=== PATIENT | female | born 1985 | race Two or more races ===

== ENCOUNTER 2025-04-12 19:37 | Emergency (ER) | payer MEDICAID, SELFPAY ==
[2025-04-12 19:39] VITALS: BMI 42.5
[2025-04-12 20:04] VITALS: BP 136/90; PULSE 120; RESP 17; TEMP 37.1; O2SAT 98
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
[2025-04-12] MEDS: AMOXICILLIN/POT CLAV 875 TABLET 1 TAB PO (21:17)
[2025-04-12] MEDS: HYDROcodone/APAP 5/325 TABLET 1 TAB PO (21:17)
[2025-04-12] MEDS: ONDANSETRON ODT 4 MG TABRAP PO (21:18)
[2025-04-12] MEDS: DIPHTH,PERTUSS(ACELL),TET VAC 0.5 ML SYR- ADULT IMi (21:18)
[2025-04-12] MEDS: IBUPROFEN TAB 400 MG TABLET 800 MG PO (21:18)
== END 2025-04-12 21:34 | disposition home or self-care (01) ==
PROVIDERS: Emergency Provider Emergency Medicine; PCP Physician Assistant
DX: S61.254A Open bite of right ring finger without damage to nail, initial encounter (principal); S41.152A Open bite of left upper arm, initial encounter; Y04.1XXA Assault by human bite, initial encounter; Z23 Encounter for immunization
CPT/HCPCS: 73120; 90471; 90715; 99283; Q0162; A9270

== ENCOUNTER 2025-08-15 12:31 | Emergency (ER) | payer MEDICAID, SELFPAY ==
[2025-08-15 12:45] VITALS: BP 128/91; PULSE 98; RESP 18; TEMP 36.9; O2SAT 99; BMI 41.8
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
--- NOTE | 2025-08-15 12:54 | EDNOTE_ITS ---
ED General RME/HPI General Chief complaint: Extremity Injury, Upper Stated complaint: Right shoulder pain Time Seen by Provider: 08/15/25 12:50 Arrival date/time: 08/15/25 12:31 CC: Right shoulder pain HPI ongoing for the past 2 months intermittent in nature. Onset after taking her daughter down as her daughter is developmentally delayed. After which the patient has had intermittent pain patient has not sought help from orthopedics or primary care doctor. No OTC medicines taken in the past 24 hours. Denies numbness in the right arm. Related Data Home Medications ?Medication ?Instructions ?Recorded ?Confirmed diphenhydramine HCl 50 mg/30 mL 25 mg PO HS PRN Sleep 03/22/20 03/22/20 oral liquid (ZzzQuil) Previous Rx's ?Medication ?Instructions ?Recorded hydroxyzine pamoate 50 mg capsule 50 mg PO TID PRN anx iety #30 caps 08/08/21 (Vistaril) cephalexin 500 mg capsule 500 mg PO Q8H #30 caps 01/13 ibuprofen 800 mg tablet 800 mg PO Q6H PRN pain #20 t abs 04/12/25 Allergies Allergy/AdvReac Type Severity Reaction Status Date / Time No Known Allergies Allergy Verified 08/15/25 12:35 Review of Systems Review of Systems Narrative Review of Systems: GEN: No fever, no chills, no weight loss EYES: No discharge, no visual changes, no pain HEENT: No ear pain, no congestion, no sore throat PULM: No shortness of breath, no cough, no congestion CV: No chest pain, no dyspnea on exertion, no palpitations GI: No nausea, no vomiting, no diarrhea, no pain, no constipation : No frequency, no urgency, no dysuria MUSC/SKEL: No joint pain, no back pain SKIN: No rash PSYCH: No hallucinations, no depression HEME/LYMPH: No easy bleeding or bruising tendencies NEURO: No weakness, no headache Past Medical History Past Medical History NEUROLOGIC: Negative Neurological Disorders CARDIAC: Negative Cardiac Disorders or Congestive Heart Failure RESPIRATORY: Negative Chronic Obstructive Pulmonary Disease (COPD) or Asthma GASTROINTESTINAL: Negative Gastrointestinal Disorders GENITOURINARY: Negative Genitourinary Disorders or Renal Disease REPRODUCTIVE: Negative Pelvic Inflammatory Disease MUSCULOSKELETAL: Negative Musculoskeletal Disorders ENDOCRINE: Negative Endocrine Disorders, Diabetes Mellitus Type 1 or Diabetes Mellitus Type 2 HEMATOLOGIC: Negative Anemia or Sickle Cell Disease OTHER HISTORY: Negative Autoimmune Disease, Falls, Blood Transfusions, Anesthesia Reactions, MRSA, VRSA, Vancomycin-Resistant Enterococci, Clostridium Difficile or Cancer Family History FAMILY HISTORY: Negative Family Neurologic Problems or Family Cardiac Disorders Surgical History SURGICAL: Positive Tubal Ligation; Negative Endocrine Surgery, Abdominal Surgery, Joint Replacement or Mastectomy Social History SMOKING STATUS: Never smoker SUBSTANCE USE: does not use ED Exam Narrative Physical exam: [General: Morbidly obese in mild discomfort but not in any acute distress Head normocephalic HEENT: Within acceptable limits Neck is supple nontender Chest equal chest rise nontender to palpation Respiratory: Clear to auscultation no wheezes crackles or rubs CV: Rate rhythm is regular no murmurs rubs or clicks Abdomen is distended secondary to body habitus soft nontender no masses positive bowel sounds all 4 quadrants Back: No CVA tenderness no spinous process tenderness from cervical spine thoracic and lumbar spine Skin: Intact no petechiae rash induration ulceration or crepitus Extremities: Decreased range of motion of the right upper extremity secondary to shoulder pain. Significant pain with adduction and abduction. Pain with supination. No pops or clicks. No pain with palpation to the shoulder base of the neck upper back or upper anterior chest. Cap refill in the digits less than 2 seconds neurosensory intact. Moving all other extremities against resistance cap refill less than 2 seconds neurosensory intact Neuro: Awake alert oriented x3 Glascow coma 15 no focal deficits] Course Course Course Narrative: Patient has had ongoing pain for 2 months. At this time I feel the patient needs to be seen by an orthopod and requires an outpatient MRI. Patient will be placed in a sling and given nonsteroidal anti-inflammatories for intermittent pain. Quality Measures none Orders Category Date Time Status Miscellaneous Nursing Order NOW Care 08/15/25 14:30 Completed XR shoulder RT min 2V Stat Exams 08/15/25 12:53 Completed Ketorolac Inj [Toradol Inj] Med 08/15/25 14:30 Discontinued 30 mg IM X1 ONE Vital Signs Vital signs: Vital Signs Temperature 98.4 F 08/15/25 12:45 Pulse Rate 98 08/15/25 12:45 Respiratory Rate 18 08/15/25 12:45 Blood Pressure 128/91 H 08/15/25 12:45 Pulse Oximetry (%) 99 08/15/25 12:45 Oxygen Delivery Method Room Air 08/15/25 12:45 Discharge Plan Plan Patient Disposition: HOME (Self Care) Patient condition on transfer: Stable Prescriptions/Referrals Prescriptions/Med Rec: No Action ZzzQuil 50 mg/30 mL Liquid 25 mg PO HS PRN (Reason: Sleep) hydroxyzine pamoate [Vistaril] 50 mg capsule 50 mg PO TID PRN (Reason: anxiety) Qty: 30 0RF cephalexin 500 mg capsule 500 mg PO Q8H Qty: 30 0RF ibuprofen 800 mg tablet 800 mg PO Q6H PRN (Reason: pain) Qty: 20 0RF Referrals: Jose Lopez MD [Physician, Orthopedics] - In 1 week Christina Crisostomo PA-C [Primary Care Provider, Family Practice] - In 1 week Problem List Clinical Impression: Shoulder pain, right Patient/Caregiver Discharge Instructions Other Activity Instructions:: Keep the arm in the sling during the day for minimize use and allow that shoulder to heal avoid all heavy lifting greater than 5 pounds. Follow-up with the orthopod listed above or an orthopod that your primary care doctor has a relationship with if there is a worsening of symptoms in spite of medications and rest return to the emergency room for reevaluation. Education Materials: ED Shoulder Pain, Uncertain Cause Print Language: Wolof Stand Alone Forms: [place] Award Info., Work/School Release, Patient Portal Info Letter KAMILAH/MONICA Supervising Physician TRISTEN Supervising Physician: Gaurav Dee ENP [facility] Clinical Information Provided by: patient Medical Records reviewed [facility] Meds/Rx considered, not ordered None Labs/Rad/Tests considered, not ordered None Chronic Illness/Social Conditions which may negatively complicate care or outcome(s)-explain: None or not madhav licable EKG EKG not done Labs Labs: none Imaging Imaging interpretation: interpreted by al Imaging Interpretation(s): X-ray shows no fracture malalignment dislocation. Medication Administration(s) Medication Administration History Discontinued Medications Ketorolac Tromethamine (Ketorolac Inj 30 Mg/Ml Vial) 30 mg IM X1 ONE Stop: 08/15/25 14:31 Last Admin: 08/15/25 14:39 Dose: 30 mg Documented By: LT
[2025-08-15] MEDS: KETOROLAC INJ 30 MG/ML VIAL IM (14:39)
== END 2025-08-15 14:50 | disposition home or self-care (01) ==
PROVIDERS: Emergency Provider Emergency Medicine; PCP Physician Assistant
DX: M25.511 Pain in right shoulder (principal)
CPT/HCPCS: 73030; 96372; 99283; A4565; J1885